=== PATIENT | male | born 1965 | race Caucasian/White ===

== ENCOUNTER → 2019-12-12 | Outpatient (CLI) | payer MEDICARE, OTHER ==
[~2019-12-12] MED LIST: ALBU90OI INH; Bactrim Ds Tab1 EACH PO; CLIN150 PO; CLOT1TC TOP; Crutch1 EACH MISC; DOXY100 PO; HYDACE5 PO; IBUP600 PO; LEVFLO500 PO; OXYACE5T PO; Percocet 10-321 EACH PO; Prednisone20 MG PO; SULTRIDS PO; Zithromax250 MG PO
[2019-12-12 18:35] LABS: Bilirubin, Urine Neg (Neg); Blood, Urine 1+ (Neg); Color, Urine Yellow (P-Yellow); Glucose Qualitative, Urine Neg (Neg); Ketones, Urine Neg (Neg); Leukocyte Esterase, Urine 2+ (Neg); Nitrite, Urine Pos (Neg); Protein, Urine Neg (Neg); Urobilinogen, Urine NORM (Normal)
[2019-12-12 18:59] LABS: Appearance, Urine Hazy (Clear); Mucus Mod (0-Heavy)
[2019-12-12 19:00] LABS: Bacteria Many /hpf; Squamous Epithelial Cells Mod /hpf (Few)
== END | disposition home or self-care (01) ==
LOC: LAB 18:03 → LAB SHORT 18:03
PROVIDERS: Family Medicine
DX: N39.0 Urinary tract infection, site not specified (principal)
CPT/HCPCS: 81001; 87077; 87086; 87186

== ENCOUNTER 2024-01-26 07:27 | Observation (INO) | payer MEDICARE, OTHER ==
[2024-01-26] VITALS (14 sets, daily range): BP systolic 107–148; BP diastolic 74–95
[~2024-01-26] VITALS: Ht 188 cm; Wt 74.8 kg
[~2024-01-26 07:27] MED LIST changes: +CEPH500 PO
[2024-01-26] MEDS ORDERED: FentaNYL Citrate 50 MCG/ML 2 ML Injection IV ONE (07:50)
[2024-01-26 08:01] LABS: BASOPHILS ABSOLUTE AUTO 0.02 K/mm3 (0.00-0.23); BASOPHILS PERCENT AUTO 0 % (0-2); EOSINOPHILS ABSOLUTE AUTO 0.05 K/mm3 (0.00-0.68); EOSINOPHILS PERCENT AUTO 1 % (0-6); Hematocrit 43.9 % (37.0-53.0); Hemoglobin 14.4 g/dL (13.5-17.5); IMMATURE GRAN ABSOLUTE AUTO 0.02 K/mm3 (0.00-0.10); IMMATURE GRAN PERCENT AUTO 0 % (0-1); LYMPHOCYTES ABSOLUTE AUTO 1.21 K/mm3 (0.84-5.20); LYMPHOCYTES PERCENT AUTO 15 % (21-46); MONOCYTES ABSOLUTE AUTO 1.22 K/mm3 (0.16-1.47); MONOCYTES PERCENT AUTO 15 % (4-13); Mean Corpuscular HGB 28.7 pg (26.0-34.0); Mean Corpuscular HGB Conc 32.8 g/dL (31.5-36.5); Mean Corpuscular Volume 88 fL (80-100); Mean Platelet Volume 9.7 fL (9.1-12.4); NEUTROPHILS ABSOLUTE AUTO 5.67 K/mm3 (1.96-9.15); NEUTROPHILS PERCENT AUTO 69 % (41-73); Platelet Count 291 K/mm3 (150-400); RDW Coefficient Variation 13.4 % (11.7-14.2); RDW Standard Deviation 43.1 fL (35.1-46.3); Red Blood Cell Count 5.01 M/mm3 (4.30-5.90); White Blood Cell Count 8.19 K/mm3 (4.00-11.30)
[2024-01-26 08:03] LABS: Source, Urine Clean Catch
[2024-01-26 08:12] LABS: Appearance, Urine Clear (Clear); Bilirubin, Urine Neg (Neg); Blood, Urine 1+ (Neg); Glucose Qualitative, Urine Neg (Neg); Ketones, Urine Neg (Neg); Leukocyte Esterase, Urine 2+ (Neg); Nitrite, Urine Neg (Neg); Protein, Urine Neg (Neg); Urobilinogen, Urine NORM (Normal)
[2024-01-26 08:18] LABS: Albumin, Blood 3.4 g/dL (3.4-5.0); Albumin/Globulin Ratio 0.9 (0.8-1.8); Bilirubin, Total 0.2 mg/dL (0.1-1.0); Bun/Creatinine Ratio 20.5 (12.0-20.0); Calcium, Blood 8.8 mg/dL (8.5-10.1); Creatinine, Blood 0.78 mg/dL (0.60-1.20); Globulin, Blood 3.9 g/dL (2.2-4.0); Potassium, Blood 3.9 mmol/L (3.5-5.5); Total Protein, Blood 7.3 g/dL (6.4-8.2)
[2024-01-26 08:49] LABS: Color, Urine Pale Yellow (P-Yellow)
[2024-01-26 08:51] LABS: Red Blood Cells, Urine 0-2 /hpf (0-2); Squamous Epithelial Cells Few /hpf (Few)
[2024-01-26 08:52] LABS: Bacteria Few /hpf
[2024-01-26] MEDS ORDERED: HYDROmorphone HCl/Pf 1MG SYR IV ONE (11:00)
[2024-01-26] MEDS ORDERED: CefOXitin Sodium 2,000 MG in NS 100 ML IV ONE (11:05)
[2024-01-26] MEDS ORDERED: NS 1,000 ML IV SCH (11:10)
[2024-01-26] MEDS ORDERED: FLU VACC QS2023-24(6MOS UP)/PF 60 MCG/0.5 ML SYRINGE IM SCH (11:55)
[2024-01-26] MEDS ORDERED: HYDROmorphone HCl/Pf 1MG SYR IV PRN (12:25)
[2024-01-26] MEDS ORDERED: Docusate Sodium/Senna 1 Tab PO PRN (12:25)
[2024-01-26] MEDS ORDERED: Ondansetron 4 MG SoluTab MM PRN (12:25)
--- NOTE | 2024-01-26 14:13 | NUR ---
PT ARRIVED TO UNIT FROM ED TRANSFERRED INDEPENDENTLY TO BED. HAS BEEN UP TO BATHROOM INDEPENDENTLY TO VOID. ORIENTED TO ROOM AND USE OF CALL LIGHT. EDUCATED ON NEED TO BE NPO FOR SURGERY. DR RAY IN TO SEE PT. EDUCATED ON USE OF CIGARETTES/LIGHTERS, ETC. PT REPORTS FAMILY MEMBER TOOK CIGARETTES/LIGHTERS OUT TO CAR. FAMILY MEMBER NOW BEDSIDE. CALL LIGHT IN PATIENT'S REACH.
--- NOTE | 2024-01-26 14:36 | NUR ---
PREOP: SURGICAL PREOP WASH DONE. NASAL SWAB AND MOUTH RINSE COMPLETED.
--- NOTE | 2024-01-26 15:05 | NUR ---
TURNED OVER CARE TO SHANNON Diaz RN PT RESTING IN BED, FAMILY MEMBER BEDSIDE. CALL LIGHT IN REACH.
--- NOTE | 2024-01-26 16:22 | NUR ---
CARE ASSUMED AT 1500. DURING BEDSIDE REPORT PT WAS ALERT AND ORIENTED. PT REPORTED 8/10 PAIN DURING REPORT. DILAUDID GIVEN FOR PAIN MANAGEMENT, PT REPORTED GOOD PAIN RELIEF. CALL LIGHT WITHIN REACH. PT'S SISTER AT THE BEDSIDE.
--- NOTE | 2024-01-26 16:39 | NUR ---
PT TAKEN TO DAY SURGERY AT THIS TIME.
--- NOTE | 2024-01-26 16:48 | NUR ---
ASSUMED CARE, PT IN PACU 1959
[2024-01-26] MEDS ORDERED: Lactated Ringer's 1,000 ML IV ONE (16:49)
[2024-01-26] MEDS ORDERED: Ipratropium/Albuterol SulF 2.5-0.5MG/3 ML Amp ONE (17:04)
[2024-01-26] MEDS ORDERED: Bupivacaine 0.5% HCl 5 MG/ML 30MLVIAL ONE (17:12)
[2024-01-26] MEDS ORDERED: propofoL 20 ML IV ONE (17:16)
[2024-01-26] MEDS ORDERED: Rocuronium Bromide 10 MG/ML 5ML Injection IV ONE (17:17)
[2024-01-26] MEDS ORDERED: FentaNYL Citrate 50 MCG/ML 2 ML Injection ONE ×2 (17:17→18:02)
--- NOTE | 2024-01-26 17:18 | NUR ---
NEBULIZER BREATHING TREATMENT IN PROGRESS FOR WHEEZES
[2024-01-26] MEDS ORDERED: Lidocaine HCl 2% Jelly 120MG/6ML SYR (20MG PER ML) ONE (17:19)
--- NOTE | 2024-01-26 17:26 | NUR ---
DR SINHA AT BEDSIDE CONSULTING PT
[2024-01-26] MEDS ORDERED: Midazolam HCl 1MG / ML 2ML Vial ONE (17:30)
[2024-01-26] MEDS ORDERED: Midazolam HCl 1MG / ML 2ML Vial IV SCH (17:45)
[2024-01-26] MEDS ORDERED: FentaNYL Citrate 50 MCG/ML 2 ML Injection IV PRN ×6 (17:50→17:55)
[2024-01-26] MEDS ORDERED: Lidocaine HCl 1% 5 ML SYR INJ ONE (17:50)
[2024-01-26] MEDS ORDERED: Phenylephrine HCl 100 MCG/ML-NS 10MLSYR (1MG/10ML) ONE (17:52)
[2024-01-26] MEDS ORDERED: Ondansetron HCl 2 MG / ML 2ML Vial IV PRN ×2 (17:55)
[2024-01-26] MEDS ORDERED: Dexamethasone Sod Phos 10 MG/ML 1ML VIAL ONE (17:58)
[2024-01-26] MEDS ORDERED: Ondansetron HCl 2 MG / ML 2ML Vial ONE (17:58)
[2024-01-26] MEDS ORDERED: HYDROcodone 5-APAP 325 TAB PO PRN (18:55)
[2024-01-27 00:52] VITALS: BP 132/73
[2024-01-27 00:54] VITALS: BP 132/73
[2024-01-27 03:42] LABS: BASOPHILS ABSOLUTE AUTO 0.01 K/mm3 (0.00-0.23); BASOPHILS PERCENT AUTO 0 % (0-2); EOSINOPHILS PERCENT AUTO 0 % (0-6); Hematocrit 42.8 % (37.0-53.0); IMMATURE GRAN ABSOLUTE AUTO 0.03 K/mm3 (0.00-0.10); IMMATURE GRAN PERCENT AUTO 1 % (0-1); LYMPHOCYTES ABSOLUTE AUTO 0.49 K/mm3 (0.84-5.20); LYMPHOCYTES PERCENT AUTO 8 % (21-46); MONOCYTES ABSOLUTE AUTO 0.53 K/mm3 (0.16-1.47); MONOCYTES PERCENT AUTO 8 % (4-13); Mean Corpuscular HGB 28.9 pg (26.0-34.0); Mean Corpuscular HGB Conc 32.7 g/dL (31.5-36.5); Mean Corpuscular Volume 88 fL (80-100); Mean Platelet Volume 9.7 fL (9.1-12.4); NEUTROPHILS ABSOLUTE AUTO 5.42 K/mm3 (1.96-9.15); NEUTROPHILS PERCENT AUTO 84 % (41-73); Platelet Count 274 K/mm3 (150-400); RDW Coefficient Variation 13.6 % (11.7-14.2); RDW Standard Deviation 44.2 fL (35.1-46.3); Red Blood Cell Count 4.84 M/mm3 (4.30-5.90); White Blood Cell Count 6.48 K/mm3 (4.00-11.30)
[2024-01-27 03:56] LABS: Bun/Creatinine Ratio 14.8 (12.0-20.0); Calcium, Blood 8.6 mg/dL (8.5-10.1); Creatinine, Blood 0.61 mg/dL (0.60-1.20); Potassium, Blood 4.6 mmol/L (3.5-5.5)
[2024-01-27 04:03] VITALS: BP 117/65
[2024-01-27 08:06] VITALS: BP 115/68
[2024-01-27] MEDS ORDERED: Enoxaparin 40 MG/0.4 ML SYR SC SCH (09:00)
[2024-01-27] MEDS ORDERED: HYDROmorphone HCl/Pf 1MG SYR IV PRN (09:00)
--- NOTE | 2024-01-27 09:21 | NUR ---
SUMMARY PT LAP SITES INTACT,ABD MILD DISTENSION WITH NO NAUSEA. TOLERATING PO. VOIDING WITH URINE COLOR CHANGE PACO TO YELLOW.AMBULATORY.
[2024-01-27] MEDS ORDERED: ALBU90OI INH ×2 (09:23)
[2024-01-27] MEDS ORDERED: Ipratropium/Albuterol SulF 2.5-0.5MG/3 ML Amp INH SCH (12:20)
[2024-01-27] MEDS ORDERED: HYDR1TAB94 PO ×2 (13:11)
--- NOTE | 2024-01-27 14:25 | NUR ---
DISCHARGE PT A&OX4, VSS/RA, HAFSA PO, VOIDING, AMB INDEPENDENTLY/DRESSED SELF/SHOWERED, PAIN MANAGED, IV DC'D. DC INS PROVIDED. PT REP UNDERSTANDING THOSE INSTRUCTIONS. LEFT FLOOR WITH ALL PERSONAL POSSESSIONS INCLUDING DC PACKET AND 1 NARC SCRIPT, TO GO HOME WITH FAMILY DRUG ENFORCEMENT ADMINISTRATION AGENT.
== END 2024-01-27 13:26 | disposition home or self-care (01) ==
LOC: ER 07:27 → SURS 07:28 → MEDS 07:28 → SURS 13:15
PROVIDERS: Emergency Medicine; Family Medicine; Student in an Organized Health Care Education/Training Program; Surgery; ADMIT Internal Medicine
PROC: 0FT44ZZ Resection of Gallbladder, Percutaneous Endoscopic Approach (ICD-10-PCS; principal; 2024-01-26 17:00)
PROC: BF121ZZ Fluoroscopy of Gallbladder using Low Osmolar Contrast (ICD-10-PCS; principal; 2024-01-26 17:00)
DX: K80.12 Calculus of gallbladder with acute and chronic cholecystitis without obstruction (principal); Z88.0 Allergy status to penicillin; Z88.5 Allergy status to narcotic agent; Z66 Do not resuscitate; R59.0 Localized enlarged lymph nodes
CPT/HCPCS: 36415; 71046; 71260; 73030; 74177; 74300; 76705; 76870; 80048; 80053; 81001; 83690; 83880; 84484; 85025; 87077; 87086; 87186; 88304; 96361; 96365-59; 96375; 96376; 99285-25; A9270; C1729; G0378; J0694; J1100; J1170; J1650; J2250; J2371; J2405; J2704; J3010; J7030; J7120; Q9967

== ENCOUNTER 2024-01-31 12:49 | Emergency (ER) | payer MEDICARE, OTHER ==
[~2024-01-31] VITALS: Ht 188 cm; Wt 72.6 kg
[~2024-01-31 12:49] MED LIST changes: +HYDR1TAB94 PO
[2024-01-31 13:14] LABS: BASOPHILS ABSOLUTE AUTO 0.03 K/mm3 (0.00-0.23); BASOPHILS PERCENT AUTO 0 % (0-2); EOSINOPHILS ABSOLUTE AUTO 0.01 K/mm3 (0.00-0.68); EOSINOPHILS PERCENT AUTO 0 % (0-6); Hematocrit 39.6 % (37.0-53.0); Hemoglobin 12.6 g/dL (13.5-17.5); IMMATURE GRAN ABSOLUTE AUTO 0.04 K/mm3 (0.00-0.10); IMMATURE GRAN PERCENT AUTO 0 % (0-1); LYMPHOCYTES ABSOLUTE AUTO 1.22 K/mm3 (0.84-5.20); LYMPHOCYTES PERCENT AUTO 13 % (21-46); MONOCYTES ABSOLUTE AUTO 1.31 K/mm3 (0.16-1.47); MONOCYTES PERCENT AUTO 14 % (4-13); Mean Corpuscular HGB 28.5 pg (26.0-34.0); Mean Corpuscular HGB Conc 31.8 g/dL (31.5-36.5); Mean Corpuscular Volume 90 fL (80-100); Mean Platelet Volume 9.6 fL (9.1-12.4); NEUTROPHILS PERCENT AUTO 71 % (41-73); Platelet Count 305 K/mm3 (150-400); RDW Coefficient Variation 13.3 % (11.7-14.2); RDW Standard Deviation 43.9 fL (35.1-46.3); Red Blood Cell Count 4.42 M/mm3 (4.30-5.90); White Blood Cell Count 9.11 K/mm3 (4.00-11.30)
[2024-01-31 13:40] LABS: Albumin, Blood 2.9 g/dL (3.4-5.0); Albumin/Globulin Ratio 0.8 (0.8-1.8); Bilirubin, Total 0.4 mg/dL (0.1-1.0); Bun/Creatinine Ratio 21.6 (12.0-20.0); Calcium, Blood 8.9 mg/dL (8.5-10.1); Creatinine, Blood 0.79 mg/dL (0.60-1.20); Globulin, Blood 3.7 g/dL (2.2-4.0); Magnesium, Blood 2.1 mg/dL (1.6-2.4); Potassium, Blood 4.4 mmol/L (3.5-5.5); Total Protein, Blood 6.6 g/dL (6.4-8.2)
[2024-01-31 14:16] LABS: Source, Urine Clean Catch
[2024-01-31 14:18] LABS: Appearance, Urine Cloudy (Clear); Bilirubin, Urine Neg (Neg); Blood, Urine 4+ (Neg); Color, Urine Yellow (P-Yellow); Glucose Qualitative, Urine Neg (Neg); Ketones, Urine Neg (Neg); Leukocyte Esterase, Urine 3+ (Neg); Nitrite, Urine Pos (Neg); Protein, Urine 2+ (Neg); Urobilinogen, Urine NORM (Normal); pH, Urine 6.5 (5.0-8.0)
[2024-01-31 14:28] LABS: White Blood Cells, Urine 50-100 /hpf (0-5)
[2024-01-31 14:29] LABS: Bacteria Many /hpf; Granular Casts 0-2 /lpf (0); Hyaline Casts 0-2 /lpf (0-2); Squamous Epithelial Cells Rare /hpf (Few)
[2024-01-31 15:00] VITALS: BP 119/88
[2024-01-31] MEDS ORDERED: CEFP200 PO (15:42)
[2024-01-31] MEDS ORDERED: Cefpodoxime Proxetil 200 MG Tab PO ONE (15:55)
== END 2024-01-31 16:32 | disposition home or self-care (01) ==
LOC: ER 12:49
PROVIDERS: Physician Assistant
DX: Z13.220 Encounter for screening for lipoid disorders (principal); Z13.6 Encounter for screening for cardiovascular disorders; K91.5 Postcholecystectomy syndrome; N50.89 Other specified disorders of the male genital organs; R59.0 Localized enlarged lymph nodes; N13.30 Unspecified hydronephrosis; N39.0 Urinary tract infection, site not specified; R73.9 Hyperglycemia, unspecified; F17.210 Nicotine dependence, cigarettes, uncomplicated; Z79.899 Other long term (current) drug therapy; Z88.0 Allergy status to penicillin; Z88.5 Allergy status to narcotic agent; Z80.59 Family history of malignant neoplasm of other urinary tract organ
CPT/HCPCS: 36415; 74177; 80053; 80061; 81001; 83690; 83735; 84153; 85025; 87077; 87086; 87186; 99284-25; A9270; Q9967

== ENCOUNTER 2024-03-04 00:17 | Emergency (ER) | payer MEDICARE, OTHER ==
[~2024-03-04] VITALS: Ht 182.9 cm; Wt 81.7 kg
[2024-03-04 04:20] VITALS: BP 137/80
== END 2024-03-04 05:17 | disposition home or self-care (01) ==
LOC: ER 00:17
DX: G89.3 Neoplasm related pain (acute) (chronic) (principal); N50.812 Left testicular pain; N50.811 Right testicular pain; E86.0 Dehydration; D69.6 Thrombocytopenia, unspecified; D72.829 Elevated white blood cell count, unspecified; E87.20 Acidosis, unspecified; F17.210 Nicotine dependence, cigarettes, uncomplicated; Z88.0 Allergy status to penicillin; Z88.5 Allergy status to narcotic agent; Z79.899 Other long term (current) drug therapy

== ENCOUNTER 2024-03-05 18:56 | Emergency (ER) | payer MEDICARE, OTHER ==
[~2024-03-05] VITALS: Ht 188 cm; Wt 65.8 kg
[~2024-03-05 18:56] MED LIST changes: +CEFP200 PO; +DOCU100 PO; +Ibuprofen600 MG PO; +NYSTATIN100000 UNI MT; +ONDA4ODT MM; +Percocet 5-3251 EACH PO
[2024-03-05 19:30] LABS: Hematocrit 25.1 % (37.0-53.0); Hemoglobin 8.1 g/dL (13.5-17.5); Mean Corpuscular HGB 27.2 pg (26.0-34.0); Mean Corpuscular HGB Conc 32.3 g/dL (31.5-36.5); Mean Corpuscular Volume 84 fL (80-100); NRBC ABSOLUTE 0.14 K/mm3 (0.00-0.02); NRBC Auto 0.6 /100 WBC (0.0-0.2); RDW Coefficient Variation 14.6 % (11.7-14.2); RDW Standard Deviation 44.4 fL (35.1-46.3); Red Blood Cell Count 2.98 M/mm3 (4.30-5.90); White Blood Cell Count 23.93 K/mm3 (4.00-11.30)
[2024-03-05] MEDS ORDERED: HYDROmorphone HCl/Pf 1MG SYR IV ONE (19:30)
[2024-03-05] MEDS ORDERED: Ondansetron HCl 2 MG / ML 2ML Vial IV ONE (19:30)
[2024-03-05 19:34] LABS: Platelet Count 13 K/mm3 (150-400)
[2024-03-05 19:40] LABS: International Normalized Ratio 1.62; Prothrombin Time Results 16.7 Sec (9.7-11.5)
[2024-03-05 20:17] LABS: Albumin/Globulin Ratio 0.7 (0.8-1.8); Bilirubin, Total 0.6 mg/dL (0.1-1.0); Bun/Creatinine Ratio 58.5 (12.0-20.0); Calcium, Blood 9.3 mg/dL (8.5-10.1); Creatinine, Blood 1.06 mg/dL (0.60-1.20); Globulin, Blood 2.9 g/dL (2.2-4.0); Potassium, Blood 4.8 mmol/L (3.5-5.5); Total Protein, Blood 4.9 g/dL (6.4-8.2)
[2024-03-05 20:38] LABS: BAND PERCENT MAN 1 % (0-8); BASOPHILS PERCENT MAN 0 % (0-2); BLASTS PERCENT MAN 2 % (0-0); EOSINOPHILS PERCENT MAN 0 % (0-6); LYMPHOCYTES % ATYPICAL MANUAL 3 % (0-0); LYMPHOCYTES ABSOLUTE MAN 13.87 K/mm3 (0.84-5.20); LYMPHOCYTES PERCENT MAN 55 % (21-46); METAMYELOCYTE ABSOLUTE MAN 0.95 K/mm3 (0.00-0.00); METAMYELOCYTE PERCENT MAN 4 % (0-0); MONOCYTES ABSOLUTE MAN 1.19 K/mm3 (0.16-1.47); MONOCYTES PERCENT MAN 5 % (4-13); MYELOCYTE ABSOLUTE MAN 1.67 K/mm3 (0.00-0.00); MYELOCYTE PERCENT MAN 7 % (0-0); NEUTROPHILS ABSOLUTE MAN 4.78 K/mm3 (1.96-9.15); PLASMA CELL ABSOLUTE MAN 0.23 K/mm3 (0.00-0.00); PLASMA CELLS PERCENT MAN 1 % (0-0); PROMYELOCYTE ABSOLUTE MAN 0.23 K/mm3 (0.00-0.00); PROMYELOCYTE PERCENT MAN 1 % (0-0); SEG NEUTROPHILS PERCENT MAN 19 % (41-73); TOTAL CELLS COUNTED 100
[2024-03-05 20:42] LABS: OTHER CELL PERCENT MAN 2 % (0-0)
[2024-03-05] MEDS ORDERED: NS 0 ML IV ONE (21:49)
[2024-03-05] MEDS ORDERED: Pantoprazole Sodium 40 MG Injection IV ONE (22:10)
[2024-03-05 23:49] LABS: Hematocrit 21.4 % (37.0-53.0); Hemoglobin 7.1 g/dL (13.5-17.5)
[2024-03-06] MEDS ORDERED: NS 1,000 ML IV SCH (01:10)
[2024-03-06] MEDS ORDERED: CefTRIAXone Sodium 1,000 MG in NS 50 ML IV ONE (01:10)
[2024-03-06] MEDS ORDERED: Octreotide Acetate 500 MCG in NS 250 ML IV SCH (01:10)
[2024-03-06] MEDS ORDERED: MetroNIDAZOLE 500MG/NS 100 ml 100 ML IV ONE (01:10)
[2024-03-06] MEDS ORDERED: Octreotide Acetate 50 MCG in NS 50 ML IV ONE (01:10)
[2024-03-06 02:00] VITALS: BP 123/73
== END 2024-03-06 02:30 | disposition short-term general hospital (02) ==
LOC: ER 18:56
PROVIDERS: Emergency Medicine; Student in an Organized Health Care Education/Training Program
DX: K92.1 Melena (principal); C62.90 Malignant neoplasm of unspecified testis, unspecified whether descended or undescended; C79.9 Secondary malignant neoplasm of unspecified site; F17.210 Nicotine dependence, cigarettes, uncomplicated; Z88.0 Allergy status to penicillin; Z88.5 Allergy status to narcotic agent
CPT/HCPCS: 36430; 74177; 80053; 83605; 85014; 85018; 85025; 85610; 96365-59; 96366; 96375; 99285-25; C9113; J1170; J2354; J2405; J7030; J7050; P9035; Q9967